=== PATIENT | female | born 1945 | race Two or more races ===

== ENCOUNTER 2018-01-27 10:21 | Emergency (ER) | payer OTHER ==
[~2018-01-27] VITALS: Ht 139.7 cm; Wt 63.5 kg
[~2018-01-27 10:21] MED LIST: ANTIVERT25 M1 PO; ASA81 MG PO; ATENOLOL50 MG PO; AVAPRO150 MG PO; CARDURA8 MG PO; FLONASE16 GM NS; IRON1TAB4 PO; LIPO-FLAVONOID1 EACH PO; METROPROLOL PO; NABUMETONE500 MG PO; NABUMETONE750 MG PO; PERCOCET 5/3251 TAB PO; SYNTHROID50 MCG PO; TENCON 50-3251 EACH PO; ULTRACET PO; VASOTEC2.5 MG
== END 2018-01-27 15:41 | disposition home or self-care (01) ==
LOC: ER 10:21
DX: K52.89 Other specified noninfective gastroenteritis and colitis (principal)

== ENCOUNTER → 2018-01-29 14:02 | Outpatient (CLI) | payer OTHER | END | disposition home or self-care (01) | LOC: LAB 14:02 | DX: N39.0 Urinary tract infection, site not specified (principal) ==

== ENCOUNTER 2018-02-01 08:06 | Outpatient (CLI) | payer OTHER | END 2018-02-01 08:44 | disposition home or self-care (01) | LOC: NUCLEAR 08:06 | DX: R14.3 Flatulence (principal); E73.8 Other lactose intolerance; K44.9 Diaphragmatic hernia without obstruction or gangrene; K30 Functional dyspepsia | CPT/HCPCS: 78264; A9541 ==

== ENCOUNTER 2018-05-14 05:34 | Emergency (ER) | payer OTHER ==
[~2018-05-14] VITALS: Ht 139.7 cm; Wt 60.8 kg
== END 2018-05-14 12:26 | disposition home or self-care (01) ==
LOC: ER 05:34 → CPU-OBS 05:38 → ER 05:38
DX: R07.89 Other chest pain (principal)

== ENCOUNTER 2018-06-19 08:47 | Outpatient (CLI) | payer OTHER | END 2018-06-19 08:54 | disposition home or self-care (01) | LOC: MAMO-SONO 08:47 | DX: Z12.31 Encounter for screening mammogram for malignant neoplasm of breast (principal); Z87.898 Personal history of other specified conditions; N60.11 Diffuse cystic mastopathy of right breast ==

== ENCOUNTER 2018-08-06 09:41 | Outpatient (CLI) | payer OTHER | END 2018-08-06 09:53 | disposition home or self-care (01) | LOC: SONOGRAMA 09:41 → MAMO-SONO 09:45 → SONOGRAMA 09:53 | DX: E04.1 Nontoxic single thyroid nodule (principal) ==

== ENCOUNTER 2018-11-12 14:16 | Outpatient (CLI) | payer OTHER | END 2018-11-12 14:20 | disposition home or self-care (01) | LOC: LAB 14:16 | DX: N39.0 Urinary tract infection, site not specified (principal); B96.89 Other specified bacterial agents as the cause of diseases classified elsewhere ==

== ENCOUNTER 2019-05-27 09:05 | Outpatient (CLI) | payer OTHER | END 2019-05-27 09:16 | disposition home or self-care (01) | LOC: LAB 09:05 | DX: N20.0 Calculus of kidney (principal) ==

== ENCOUNTER 2019-05-28 10:06 | Outpatient (CLI) | payer OTHER | END 2019-05-28 10:46 | disposition home or self-care (01) | LOC: TOM 10:06 | DX: E73.8 Other lactose intolerance (principal); R14.3 Flatulence; Z86.010 Personal history of colon polyps; R10.10 Upper abdominal pain, unspecified | CPT/HCPCS: 74177; Q9965 ==

== ENCOUNTER 2019-06-03 08:47 | Outpatient (CLI) | payer OTHER ==
[~2019-06-03] VITALS: Ht 139.7 cm; Wt 63.5 kg
== END 2019-06-03 11:24 | disposition home or self-care (01) ==
LOC: OFIC 805 08:47
DX: K21.0 Gastro-esophageal reflux disease with esophagitis (principal); E03.3 Postinfectious hypothyroidism; R07.0 Pain in throat

== ENCOUNTER 2019-06-17 10:14 | Outpatient (CLI) | payer OTHER | END 2019-06-17 14:27 | disposition home or self-care (01) | LOC: LAB 10:14 | DX: J11.1 Influenza due to unidentified influenza virus with other respiratory manifestations (principal); D64.89 Other specified anemias ==

== ENCOUNTER → 2019-10-23 09:21 | Outpatient (CLI) | payer OTHER | END | disposition home or self-care (01) | LOC: LAB 09:21 | PROVIDERS: ATTEND Internal Medicine Cardiovascular Disease | DX: I10 Essential (primary) hypertension (principal); E11.9 Type 2 diabetes mellitus without complications; E03.8 Other specified hypothyroidism ==

== ENCOUNTER 2020-01-05 09:19 | Outpatient (CLI) | payer OTHER | END 2020-01-05 09:22 | disposition home or self-care (01) | LOC: LAB 09:19 | DX: Z03.818 Encounter for observation for suspected exposure to other biological agents ruled out (principal) ==

== ENCOUNTER 2020-02-14 09:56 | Outpatient (CLI) | payer OTHER | END 2020-02-14 10:00 | disposition home or self-care (01) | LOC: LAB 09:56 | PROVIDERS: ATTEND Internal Medicine Cardiovascular Disease | DX: E03.8 Other specified hypothyroidism (principal); I10 Essential (primary) hypertension; E11.9 Type 2 diabetes mellitus without complications; E78.2 Mixed hyperlipidemia; Z12.11 Encounter for screening for malignant neoplasm of colon ==

== ENCOUNTER → 2020-02-16 07:43 | Outpatient (CLI) | payer OTHER | END | disposition home or self-care (01) | LOC: LAB 07:43 | PROVIDERS: ATTEND Internal Medicine Cardiovascular Disease | DX: I10 Essential (primary) hypertension (principal); E11.9 Type 2 diabetes mellitus without complications; E03.8 Other specified hypothyroidism; E78.2 Mixed hyperlipidemia; Z12.11 Encounter for screening for malignant neoplasm of colon ==

== ENCOUNTER → 2020-04-27 | Outpatient (CLI) | payer OTHER | END | disposition home or self-care (01) | LOC: OFIC 805 13:13 | PROVIDERS: ATTEND Otolaryngology | DX: E03.8 Other specified hypothyroidism (principal); K21.00 Gastro-esophageal reflux disease with esophagitis, without bleeding; R07.0 Pain in throat; R13.19 Other dysphagia ==

== ENCOUNTER 2020-05-10 13:39 | Outpatient (CLI) | payer OTHER | END 2020-05-10 13:48 | disposition home or self-care (01) | LOC: SONOGRAMA 13:39 | PROVIDERS: ATTEND Otolaryngology | DX: E04.2 Nontoxic multinodular goiter (principal); R22.2 Localized swelling, mass and lump, trunk ==

== ENCOUNTER 2020-05-31 12:50 | Outpatient (CLI) | payer OTHER | END 2020-05-31 12:54 | disposition home or self-care (01) | LOC: RAD 12:50 | PROVIDERS: ATTEND Internal Medicine Cardiovascular Disease | DX: M12.88 Other specific arthropathies, not elsewhere classified, other specified site (principal) ==

== ENCOUNTER 2020-06-10 13:04 | Outpatient (CLI) | payer OTHER | END 2020-06-10 13:58 | disposition home or self-care (01) | LOC: OFIC 805 13:04 | PROVIDERS: ATTEND Otolaryngology | DX: K21.00 Gastro-esophageal reflux disease with esophagitis, without bleeding (principal); R07.0 Pain in throat; R13.19 Other dysphagia ==

== ENCOUNTER 2020-06-30 13:18 | Outpatient (CLI) | payer OTHER | END 2020-06-30 13:20 | disposition home or self-care (01) | LOC: SONOGRAMA 13:18 | PROVIDERS: ATTEND Internal Medicine Cardiovascular Disease | DX: M25.511 Pain in right shoulder (principal) ==

== ENCOUNTER 2020-07-14 13:24 | Emergency (ER) | payer OTHER ==
[~2020-07-14] VITALS: Ht 139.7 cm; Wt 63.5 kg
[2020-07-14] MEDS ORDERED: ORPHENADRINE C100 MG PO (17:39)
[2020-07-14] MEDS ORDERED: KETO10TA2 PO (17:39)
== END 2020-07-14 17:44 | disposition home or self-care (01) ==
LOC: ER 13:24
DX: I87.2 Venous insufficiency (chronic) (peripheral) (principal); M79.605 Pain in left leg; M54.5 Low back pain

== ENCOUNTER 2020-11-30 07:49 | Outpatient (CLI) | payer OTHER ==
[~2020-11-30 07:49] MED LIST changes: +KETO10TA2 PO; +ORPHENADRINE C100 MG PO
== END 2020-11-30 07:50 | disposition home or self-care (01) ==
LOC: LAB 07:49
DX: I10 Essential (primary) hypertension (principal); D68.8 Other specified coagulation defects; T45.515S Adverse effect of anticoagulants, sequela; Z01.812 Encounter for preprocedural laboratory examination; H11.022 Central pterygium of left eye

== ENCOUNTER 2021-01-06 11:59 | Outpatient (CLI) | payer OTHER | END 2021-01-06 12:01 | disposition home or self-care (01) | LOC: RAD 11:59 | PROVIDERS: ATTEND Podiatrist | DX: M77.32 Calcaneal spur, left foot (principal); M77.31 Calcaneal spur, right foot; M20.12 Hallux valgus (acquired), left foot; M20.11 Hallux valgus (acquired), right foot ==

== ENCOUNTER 2021-02-17 07:33 | Outpatient (CLI) | payer OTHER | END 2021-02-17 07:35 | disposition home or self-care (01) | LOC: NUCLEAR 07:33 | PROVIDERS: ATTEND Internal Medicine Rheumatology | DX: M81.0 Age-related osteoporosis without current pathological fracture (principal) ==

== ENCOUNTER 2021-06-16 13:40 | Outpatient (CLI) | payer OTHER | END 2021-06-16 13:43 | disposition home or self-care (01) | LOC: MAMO-SONO 13:40 | PROVIDERS: ATTEND Obstetrics & Gynecology | DX: N60.11 Diffuse cystic mastopathy of right breast (principal); N60.12 Diffuse cystic mastopathy of left breast ==

== ENCOUNTER 2021-06-23 13:48 | Outpatient (CLI) | payer OTHER | END 2021-06-23 13:57 | disposition home or self-care (01) | LOC: RAD 13:48 | PROVIDERS: ATTEND Internal Medicine Rheumatology | DX: M51.9 Unspecified thoracic, thoracolumbar and lumbosacral intervertebral disc disorder (principal); M17.9 Osteoarthritis of knee, unspecified ==

== ENCOUNTER 2021-11-14 14:28 | Outpatient (CLI) | payer OTHER | END 2021-11-14 14:31 | disposition home or self-care (01) | LOC: RAD 14:28 | PROVIDERS: ATTEND Internal Medicine Cardiovascular Disease | DX: J44.9 Chronic obstructive pulmonary disease, unspecified (principal) ==

== ENCOUNTER 2022-07-18 14:12 | Outpatient (CLI) | payer OTHER | END 2022-07-18 14:13 | disposition home or self-care (01) | LOC: LAB 14:12 | PROVIDERS: ATTEND Internal Medicine Cardiovascular Disease | DX: J11.1 Influenza due to unidentified influenza virus with other respiratory manifestations (principal); A49.3 Mycoplasma infection, unspecified site; Z20.822 Contact with and (suspected) exposure to COVID-19; I10 Essential (primary) hypertension; E11.9 Type 2 diabetes mellitus without complications; E03.9 Hypothyroidism, unspecified; E78.2 Mixed hyperlipidemia; Z12.11 Encounter for screening for malignant neoplasm of colon ==

== ENCOUNTER 2022-09-19 09:02 | Emergency (ER) | payer OTHER ==
[~2022-09-19] VITALS: Ht 139.7 cm; Wt 63.5 kg
[2022-09-19] MEDS ORDERED: TOPROL XL25 M1 (09:17)
== END 2022-09-19 11:52 | disposition home or self-care (01) ==
LOC: ER 09:02
DX: R51.9 Headache, unspecified (principal); E03.9 Hypothyroidism, unspecified; J32.8 Other chronic sinusitis; J30.2 Other seasonal allergic rhinitis; I10 Essential (primary) hypertension; H60.91 Unspecified otitis externa, right ear

== ENCOUNTER → 2022-12-22 09:21 | Outpatient (CLI) | payer OTHER ==
[~2022-12-22 09:21] MED LIST changes: +TOPROL XL25 M1
== END | disposition home or self-care (01) ==
LOC: LAB 09:21
PROVIDERS: ATTEND Internal Medicine Cardiovascular Disease
DX: E78.2 Mixed hyperlipidemia (principal); I10 Essential (primary) hypertension; E11.9 Type 2 diabetes mellitus without complications

== ENCOUNTER 2023-02-13 10:26 | Emergency (ER) | payer OTHER ==
[~2023-02-13] VITALS: Ht 139.7 cm; Wt 63.5 kg
[2023-02-13] MEDS ORDERED: LEVO-T150 MCG (10:38)
[2023-02-13 12:47] LABS: HEMATOCRIT 36.4 % (36.0-45.00); HEMOGLOBIN 12.3 g/dL (12.0-15.00); MEAN CELL VOLUME 88.7 fL (80.00-100.00); MEAN CORPUSCULAR HGB CONC 33.8 g/dl (32.0-36.0); PLATELET COUNT 204 K/uL (150-450); RED CELL DISTRIBUTION WIDTH 13.3 % (11.5-14.5)
[2023-02-13 13:09] LABS: CALCIUM 8.8 mg/dL (8.5-10.1); CREATININE SERUM 0.63 mg/dL (0.55-1.02); GFR 92.12; POTASSIUM 3.79 mEq/L (3.5-5.1)
[2023-02-13] MEDS ORDERED: ALLEGRA ALLERGY60 MG PO (14:08)
[2023-02-13] MEDS ORDERED: FLONASE ALLERG9.9 ML NASAL (14:08)
== END 2023-02-13 14:19 | disposition home or self-care (01) ==
LOC: ER 10:27
PROVIDERS: General Practice
DX: J32.9 Chronic sinusitis, unspecified (principal); R68.89 Other general symptoms and signs; J31.0 Chronic rhinitis; Z20.822 Contact with and (suspected) exposure to COVID-19
CPT/HCPCS: 36415; 96372; 99284; J1885

== ENCOUNTER 2023-02-25 13:33 | Emergency (ER) | payer OTHER ==
[~2023-02-25] VITALS: Ht 157.5 cm; Wt 58.1 kg
[~2023-02-25 13:33] MED LIST changes: +ALLEGRA ALLERGY60 MG PO; +FLONASE ALLERG9.9 ML NASAL; +LEVO-T150 MCG
[2023-02-25] MEDS ORDERED: NORFLEX100MG PO (16:40)
[2023-02-25] MEDS ORDERED: KETO10TA2 PO (16:40)
== END 2023-02-25 17:55 ==
LOC: ER 13:33
DX: S09.8XXA Other specified injuries of head, initial encounter (principal); W01.0XXA Fall on same level from slipping, tripping and stumbling without subsequent striking against object, initial encounter; Y93.E5 Activity, floor mopping and cleaning; Y92.012 Bathroom of single-family (private) house as the place of occurrence of the external cause; I10 Essential (primary) hypertension; E03.9 Hypothyroidism, unspecified; M62.838 Other muscle spasm
CPT/HCPCS: 70450; 72125; 96372; 99284; J1885; J2360

== ENCOUNTER → 2023-04-25 08:03 | Outpatient (CLI) | payer OTHER ==
[~2023-04-25 08:03] MED LIST changes: +NORFLEX100MG PO
[2023-04-25 09:01] LABS: HEMATOCRIT 36.3 % (36.0-45.00); HEMOGLOBIN 12.5 g/dL (12.0-15.00); MEAN CELL VOLUME 89.1 fL (80.00-100.00); MEAN CORPUSCULAR HEMOGLOBIN 30.6 pg (27.00-32.0); MEAN CORPUSCULAR HGB CONC 34.4 g/dl (32.0-36.0); PH,URINE 5.5 (5.0-8.0); PLATELET COUNT 200 K/uL (150-450); RED BLOOD COUNT 4.08 M/uL (4.00-6.00); RED CELL DISTRIBUTION WIDTH 13.5 % (11.5-14.5); URINE APPEARANCE Clear; URINE BILIRRUBIN Negative (NEGATIVE); URINE BLOOD Negative; URINE COLOR Yellow; URINE GLUCOSE Negative (NEGATIVE); URINE LEUKOCYTE Trace; URINE NITRATE Negative; URINE PROTEIN Negative (NEGATIVE); URINE UROBILINOGEN 0.2 E.U./dl
[2023-04-25 09:05] LABS: URINE BACTERIA 56.6 uL (0.0-1933); URINE EPITHELIAL CELLS 8.1 uL (0.0-38.8); URINE WBC 45.4 uL (0.0-23.2)
[2023-04-25 09:17] LABS: URINE RBC 1.4 uL (0.0-20.8)
[2023-04-25 09:20] LABS: INR 0.97; PROTHROMBIN TIME 10.2 SECONDS (9.0-11.5)
[2023-04-25 09:25] LABS: CALCIUM 9.1 mg/dL (8.5-10.1); CREATININE SERUM 0.64 mg/dL (0.55-1.02); GFR 90.22; POTASSIUM 4.19 mEq/L (3.5-5.1)
[2023-04-25 10:57] LABS: ALBUMIN 3.6 gm/dL (3.4-5.0); BILIRUBIN TOTAL 0.34 mg/dL (0.3-1.2); GLOBULINA 3.3 G/DL (2.4-3.5); TOTAL PROTEIN 6.9 gm/dL (6.4-8.2)
== END | disposition home or self-care (01) ==
LOC: RAD 08:03 → LAB 08:03
PROVIDERS: ATTEND Orthopaedic Surgery Sports Medicine
DX: D68.9 Coagulation defect, unspecified (principal)

== ENCOUNTER 2023-04-30 05:56 | Inpatient (IN) | payer OTHER ==
[~2023-04-30] VITALS: Ht 139.7 cm; Wt 64.4 kg
[2023-05-07 11:24] LABS: HEMATOCRIT 32.9 % (36.0-45.00); HEMOGLOBIN 11.4 g/dL (12.0-15.00); RED BLOOD COUNT 3.7 M/uL (4.00-6.00)
[2023-05-07 15:58] LABS: HEMATOCRIT 33.7 % (36.0-45.00); HEMOGLOBIN 11.4 g/dL (12.0-15.00); MEAN CELL VOLUME 87.9 fL (80.00-100.00); MEAN CORPUSCULAR HEMOGLOBIN 29.8 pg (27.00-32.0); MEAN CORPUSCULAR HGB CONC 33.9 g/dl (32.0-36.0); PLATELET COUNT 164 K/uL (150-450); RED BLOOD COUNT 3.83 M/uL (4.00-6.00); RED CELL DISTRIBUTION WIDTH 13.5 % (11.5-14.5)
[2023-05-07 16:27] LABS: BILIRUBIN TOTAL 0.39 mg/dL (0.3-1.2); CALCIUM 7.9 mg/dL (8.5-10.1); CREATININE SERUM 0.54 mg/dL (0.55-1.02); GFR 109.76; GLOBULINA 3.1 G/DL (2.4-3.5); POTASSIUM 3.81 mEq/L (3.5-5.1); TOTAL PROTEIN 6.1 gm/dL (6.4-8.2)
[2023-05-08 06:02] LABS: HEMATOCRIT 30.2 % (36.0-45.00); HEMOGLOBIN 10.4 g/dL (12.0-15.00); MEAN CELL VOLUME 88.5 fL (80.00-100.00); MEAN CORPUSCULAR HEMOGLOBIN 30.5 pg (27.00-32.0); MEAN CORPUSCULAR HGB CONC 34.5 g/dl (32.0-36.0); PLATELET COUNT 170 K/uL (150-450); RED BLOOD COUNT 3.41 M/uL (4.00-6.00); RED CELL DISTRIBUTION WIDTH 13.4 % (11.5-14.5)
[2023-05-08 11:04] LABS: CALCIUM 8.6 mg/dL (8.5-10.1); CREATININE SERUM 0.72 mg/dL (0.55-1.02); GFR 78.75; MAGNESIUM 2.1 mg/dL (1.8-2.4); POTASSIUM 4.04 mEq/L (3.5-5.1)
[2023-05-09 06:30] LABS: HEMATOCRIT 24.7 % (36.0-45.00); MEAN CELL VOLUME 87.3 fL (80.00-100.00); MEAN CORPUSCULAR HGB CONC 35.8 g/dl (32.0-36.0); PLATELET COUNT 142 K/uL (150-450); RED BLOOD COUNT 2.83 M/uL (4.00-6.00); RED CELL DISTRIBUTION WIDTH 13.4 % (11.5-14.5)
[2023-05-09 06:31] LABS: HEMOGLOBIN 8.8 g/dL (12.0-15.00)
[2023-05-09] MEDS ORDERED: BACTRIM DS TAB1 EACH PO (06:31)
[2023-05-09] MEDS ORDERED: XARELTO10 MG PO (06:31)
[2023-05-09] MEDS ORDERED: OXYC1TAB9 PO (06:31)
[2023-05-09] MEDS ORDERED: INTEGRA PLUS C1 EACH PO (06:31)
== END 2023-05-09 16:09 | DRG 470 ==
LOC: O/R 05-07 05:15 → SURG 05-07 05:15 → CIR.AMB 05-07 05:55 → EDSTATUS 05-07 07:08 → SURH 05-07 07:14 → SURG 05-07 11:42
PROVIDERS: Internal Medicine; ADMIT Orthopaedic Surgery Sports Medicine; ATTEND Orthopaedic Surgery Sports Medicine
PROC: 0SRC0J9 Replacement of Right Knee Joint with Synthetic Substitute, Cemented, Open Approach (ICD-10-PCS; principal; 2023-05-07 10:30)
DX: M17.11 Unilateral primary osteoarthritis, right knee (principal); I10 Essential (primary) hypertension; Z20.822 Contact with and (suspected) exposure to COVID-19

== ENCOUNTER → 2023-11-05 | Outpatient (CLI) | payer OTHER ==
[~2023-11-05] MED LIST changes: +BACTRIM DS TAB1 EACH PO; +INTEGRA PLUS C1 EACH PO; +OXYC1TAB9 PO; +XARELTO10 MG PO
[2023-11-05 12:47] LABS: PH,URINE 7.5 (5.0-8.0); URINE APPEARANCE Cloudy; URINE BILIRRUBIN Negative (NEGATIVE); URINE BLOOD Negative; URINE COLOR Yellow; URINE GLUCOSE Negative (NEGATIVE); URINE LEUKOCYTE Small; URINE NITRATE Negative; URINE PROTEIN Negative (NEGATIVE); URINE UROBILINOGEN 0.2 E.U./dl
[2023-11-05 12:53] LABS: URINE RBC 5.8 uL (0.0-20.8); URINE WBC 118.7 uL (0.0-23.2)
== END | disposition home or self-care (01) ==
LOC: LAB 11:52
PROVIDERS: ATTEND Internal Medicine Cardiovascular Disease
DX: N39.0 Urinary tract infection, site not specified (principal)

== ENCOUNTER 2024-01-08 08:26 | Emergency (ER) | payer OTHER ==
[~2024-01-08] VITALS: Ht 162.6 cm; Wt 63.5 kg
[2024-01-08 10:07] LABS: HEMOGLOBIN 12.7 g/dL (12.0-15.00); MEAN CELL VOLUME 88.9 fL (80.00-100.00); MEAN CORPUSCULAR HEMOGLOBIN 30.5 pg (27.00-32.0); MEAN CORPUSCULAR HGB CONC 34.3 g/dl (32.0-36.0); PLATELET COUNT 205 K/uL (150-450); RED BLOOD COUNT 4.16 M/uL (4.00-6.00); RED CELL DISTRIBUTION WIDTH 13.5 % (11.5-14.5)
[2024-01-08 10:08] LABS: URINE APPEARANCE Clear; URINE BILIRRUBIN Negative (NEGATIVE); URINE BLOOD Negative; URINE COLOR Yellow; URINE GLUCOSE Negative (NEGATIVE); URINE KETONE Negative (NEGATIVE); URINE LEUKOCYTE Small; URINE NITRATE Negative; URINE PROTEIN Negative (NEGATIVE); URINE UROBILINOGEN 0.2 E.U./dl
[2024-01-08 10:10] LABS: URINE BACTERIA 1112.4 uL (0.0-1933); URINE RBC 3.8 uL (0.0-20.8); URINE WBC 72.8 uL (0.0-23.2)
[2024-01-08 10:29] LABS: CALCIUM 9.1 mg/dL (8.5-10.1); CREATININE SERUM 0.6 mg/dL (0.55-1.02); GFR 97.2; POTASSIUM 4.67 mEq/L (3.5-5.1)
== END 2024-01-08 10:44 | disposition home or self-care (01) ==
LOC: ER 08:27
PROVIDERS: General Practice
DX: N39.0 Urinary tract infection, site not specified (principal); R10.2 Pelvic and perineal pain; I10 Essential (primary) hypertension

== ENCOUNTER 2024-01-22 10:48 | Outpatient (CLI) | payer OTHER ==
[2024-01-22 11:31] LABS: HEMATOCRIT 35.7 % (36.0-45.00); MEAN CELL VOLUME 89.7 fL (80.00-100.00); MEAN CORPUSCULAR HEMOGLOBIN 30.3 pg (27.00-32.0); MEAN CORPUSCULAR HGB CONC 33.7 g/dl (32.0-36.0); PLATELET COUNT 179 K/uL (150-450); RED BLOOD COUNT 3.98 M/uL (4.00-6.00); RED CELL DISTRIBUTION WIDTH 14.2 % (11.5-14.5)
[2024-01-22 12:26] LABS: MYCOPLASMA PNEUMONIAE IGM NON REACTIVE (NO REACTIVE)
== END 2024-01-22 10:54 | disposition home or self-care (01) ==
LOC: LAB 10:48
PROVIDERS: ATTEND Internal Medicine Cardiovascular Disease
DX: J11.1 Influenza due to unidentified influenza virus with other respiratory manifestations (principal); A49.3 Mycoplasma infection, unspecified site; Z20.822 Contact with and (suspected) exposure to COVID-19

== ENCOUNTER 2024-03-10 10:36 | Emergency (ER) | payer OTHER ==
[~2024-03-10] VITALS: Ht 139.7 cm; Wt 63.5 kg
[2024-03-10] MEDS ORDERED: ORPHENADRINE CITRATE 30 MG/ML AMPUL IM ONE (12:00)
[2024-03-10] MEDS ORDERED: KETOROLAC TROMETHAMINE 60 MG VIAL IM ONE (12:00)
[2024-03-10] MEDS ORDERED: ENALAPRIL MALEATE 2.5 MG TABLET PO ONE (12:00)
[2024-03-10] MEDS ORDERED: MONTELUKAST SODI4 M1 PO (12:04)
[2024-03-10] MEDS ORDERED: NORFLEX100MG PO (12:04)
== END 2024-03-10 12:49 | disposition home or self-care (01) ==
LOC: ER 10:36
DX: M62.838 Other muscle spasm (principal); I10 Essential (primary) hypertension
CPT/HCPCS: 96372; 99282; J1885; J2360

== ENCOUNTER 2024-05-09 10:37 | Outpatient (CLI) | payer OTHER ==
[~2024-05-09 10:37] MED LIST changes: +MONTELUKAST SODI4 M1 PO
== END 2024-05-09 11:00 | disposition home or self-care (01) ==
LOC: RAD 10:37
PROVIDERS: ATTEND Orthopaedic Surgery Sports Medicine
DX: M17.11 Unilateral primary osteoarthritis, right knee (principal)

== ENCOUNTER 2024-06-05 09:37 | Outpatient (CLI) | payer OTHER | END 2024-06-05 09:41 | disposition home or self-care (01) | LOC: SONOGRAMA 09:37 | PROVIDERS: ATTEND Internal Medicine Cardiovascular Disease | DX: R10.9 Unspecified abdominal pain (principal) ==

== ENCOUNTER → 2024-07-08 09:04 | Outpatient (CLI) | payer OTHER | END | disposition home or self-care (01) | LOC: NUCLEAR 09:04 | PROVIDERS: ATTEND Internal Medicine Cardiovascular Disease | DX: G30.9 Alzheimer's disease, unspecified (principal); R41.2 Retrograde amnesia | CPT/HCPCS: 78803; A9557 ==

== ENCOUNTER 2024-08-09 17:54 | Emergency (ER) | payer OTHER ==
[~2024-08-09] VITALS: Ht 139.7 cm; Wt 63.5 kg
[2024-08-09] MEDS ORDERED: TOPROL XL50 M1 PO (18:07)
== END 2024-08-09 21:05 | disposition home or self-care (01) ==
LOC: ER 17:54
DX: S09.8XXA Other specified injuries of head, initial encounter (principal); W18.39XA Other fall on same level, initial encounter; Y93.89 Activity, other specified; Y92.018 Other place in single-family (private) house as the place of occurrence of the external cause; I10 Essential (primary) hypertension

== ENCOUNTER → 2024-09-22 | Emergency (ER) | payer OTHER ==
[~2024-09-22] VITALS: Ht 139.7 cm; Wt 68.9 kg
[~2024-09-22] MED LIST changes: +CEFTRIAXONE SODIUM 2,000 MG VIAL ONE; +TOPROL XL50 M1 PO
[2024-09-22 18:58] LABS: BASO % 0.6 % (0.1-1.2); EOS # 0.18 (0.04-0.54); EOS % 3.3 % (0.7-7.0); HEMATOCRIT 37.2 % (34.1-44.9); HEMOGLOBIN 12.5 g/dL (11.2-15.7); LYMPH % 29.4 % (19.3-53.1); MEAN CORPUSCULAR HEMOGLOBIN 29.1 pg (25.6-32.2); MONO # 0.43 (0.24-0.82); MONO % 7.9 % (4.7-12.5); NEUT # 3.18 (1.56-6.13); NEUT % 58.4 % (34.0-71.1); PLATELET COUNT 194 K/uL (163-369)
[2024-09-22 19:15] LABS: ALBUMIN 3.7 gm/dL (3.4-5.0); BILIRUBIN TOTAL 0.33 mg/dL (0.3-1.2); CALCIUM 9.4 mg/dL (8.5-10.1); CREATININE SERUM 0.66 mg/dL (0.55-1.02); GFR 86.84; GLOBULINA 4.2 G/DL (2.4-3.5); POTASSIUM 4.01 mEq/L (3.5-5.1); TOTAL PROTEIN 7.9 gm/dL (6.4-8.2)
== END | disposition left against medical advice (07) ==
LOC: ER 15:29 → EDBD 16:02
PROVIDERS: Preventive Medicine Public Health & General Preventive Medicine
DX: R60.0 Localized edema (principal); I10 Essential (primary) hypertension; E03.9 Hypothyroidism, unspecified

== ENCOUNTER 2024-09-23 11:13 | Emergency (ER) | payer OTHER ==
[~2024-09-23] VITALS: Ht 139.7 cm; Wt 68.0 kg
[~2024-09-23 11:13] MED LIST changes: -CEFTRIAXONE SODIUM 2,000 MG VIAL ONE
[2024-09-23] MEDS ORDERED: 0.9 % SODIUM CHLORIDE 1,000 ML IV ONE (13:45)
[2024-09-23 14:07] LABS: BASO % 0.6 % (0.1-1.2); EOS # 0.12 (0.04-0.54); EOS % 2.3 % (0.7-7.0); HEMATOCRIT 36.6 % (34.1-44.9); HEMOGLOBIN 12.6 g/dL (11.2-15.7); LYMPH # 1.53 (1.18-3.74); LYMPH % 28.8 % (19.3-53.1); MEAN CORPUSCULAR HEMOGLOBIN 30.1 pg (25.6-32.2); MONO % 7.5 % (4.7-12.5); NEUT # 3.21 (1.56-6.13); NEUT % 60.4 % (34.0-71.1); PLATELET COUNT 196 K/uL (163-369); RED BLOOD COUNT 4.19 M/uL (3.93-5.22); RED CELL DISTRIBUTION WIDTH 12.9 % (11.6-14.4)
[2024-09-23 14:33] LABS: ALBUMIN 3.8 gm/dL (3.4-5.0); BILIRUBIN TOTAL 0.39 mg/dL (0.3-1.2); CALCIUM 9.4 mg/dL (8.5-10.1); CREATININE SERUM 0.65 mg/dL (0.55-1.02); GFR 88.38; GLOBULINA 4.3 G/DL (2.4-3.5); POTASSIUM 3.98 mEq/L (3.5-5.1); TOTAL PROTEIN 8.1 gm/dL (6.4-8.2)
[2024-09-23 14:39] LABS: INR 0.96; PARTIAL THROMBOPLASTIN TIME 25.6 SECONDS (22.0-34.0); PROTHROMBIN TIME 10.5 SECONDS (9.0-11.5)
[2024-09-23 14:52] LABS: URINE APPEARANCE Clear; URINE BILIRRUBIN Negative (NEGATIVE); URINE BLOOD Negative; URINE COLOR Yellow; URINE GLUCOSE Negative (NEGATIVE); URINE KETONE Negative (NEGATIVE); URINE LEUKOCYTE Negative; URINE NITRATE Positive; URINE PROTEIN Negative (NEGATIVE); URINE UROBILINOGEN 0.2 E.U./dl
[2024-09-23 14:56] LABS: URINE EPITHELIAL CELLS 2.8 uL (0.0-38.8); URINE RBC 2.5 uL (0.0-20.8); URINE WBC 13.4 uL (0.0-23.2)
[2024-09-23 15:18] LABS: URINE BACTERIA > 9821.5 uL (0.0-1933)
[2024-09-23] MEDS ORDERED: CEFTRIAXONE SODIUM 2,000 MG VIAL IV ONE (18:30)
[2024-09-23] MEDS ORDERED: BACTRIM DS TAB1 EACH PO (20:11)
== END 2024-09-23 20:36 | disposition home or self-care (01) ==
LOC: ER 11:13 → EDBD 11:48 → ER 11:48
PROVIDERS: General Practice
DX: N39.0 Urinary tract infection, site not specified (principal); R14.0 Abdominal distension (gaseous); R60.0 Localized edema; R10.9 Unspecified abdominal pain; I10 Essential (primary) hypertension
CPT/HCPCS: 36415; 71046; 74177; 96365; 96366; 99284; J0696; J7030; Q9965

== ENCOUNTER 2024-09-24 06:11 | Outpatient (CLI) | payer OTHER ==
[2024-09-24 14:13] LABS: PH,URINE 6.5 (5.0-8.0); URINE APPEARANCE Clear; URINE BILIRRUBIN Negative (NEGATIVE); URINE BLOOD Negative; URINE COLOR Yellow; URINE GLUCOSE Negative (NEGATIVE); URINE KETONE Negative (NEGATIVE); URINE LEUKOCYTE Trace; URINE NITRATE Negative; URINE PROTEIN Negative (NEGATIVE); URINE UROBILINOGEN 0.2 E.U./dl
[2024-09-24 14:17] LABS: URINE BACTERIA 4.8 uL (0.0-1933); URINE WBC 58.1 uL (0.0-23.2)
== END 2024-09-24 06:24 | disposition home or self-care (01) ==
LOC: EDBD 06:11 → LAB 06:11
PROVIDERS: ATTEND Preventive Medicine Public Health & General Preventive Medicine
DX: N39.0 Urinary tract infection, site not specified (principal)

== ENCOUNTER 2024-11-19 13:11 | Outpatient (CLI) | payer OTHER ==
[2024-11-19 13:29] LABS: URINE APPEARANCE Turbid; URINE BILIRRUBIN Negative (NEGATIVE); URINE BLOOD Negative; URINE COLOR Yellow; URINE GLUCOSE Negative (NEGATIVE); URINE KETONE Negative (NEGATIVE); URINE LEUKOCYTE Small; URINE NITRATE Negative; URINE PROTEIN Negative (NEGATIVE); URINE UROBILINOGEN 0.2 E.U./dl
[2024-11-19 13:30] LABS: URINE BACTERIA 1025.9 uL (0.0-1933); URINE EPITHELIAL CELLS 16.9 uL (0.0-38.8); URINE RBC 13.1 uL (0.0-20.8); URINE WBC 162.8 uL (0.0-23.2)
[2024-11-19 13:34] LABS: URINE CAST 0.00 uL (0.0-1.40)
== END 2024-11-19 13:17 | disposition home or self-care (01) ==
LOC: LAB 13:11
PROVIDERS: ATTEND Internal Medicine Cardiovascular Disease
DX: N39.0 Urinary tract infection, site not specified (principal)

== ENCOUNTER 2025-03-30 12:22 | Outpatient (CLI) | payer OTHER ==
[2025-03-30 12:51] LABS: URINE APPEARANCE Clear; URINE BILIRRUBIN Negative (NEGATIVE); URINE BLOOD Negative; URINE COLOR Yellow; URINE GLUCOSE Negative (NEGATIVE); URINE KETONE Negative (NEGATIVE); URINE LEUKOCYTE Moderate; URINE NITRATE Negative; URINE PROTEIN Negative (NEGATIVE); URINE UROBILINOGEN 0.2 E.U./dl
[2025-03-30 12:52] LABS: URINE BACTERIA 19.4 uL (0.0-1933); URINE EPITHELIAL CELLS 1.9 uL (0.0-38.8); URINE RBC 4.3 uL (0.0-20.8); URINE WBC 343.8 uL (0.0-23.2)
[2025-03-30 13:31] LABS: URINE CAST 0.28 uL (0.0-1.40)
== END 2025-03-30 13:53 | disposition home or self-care (01) ==
LOC: LAB 12:22
PROVIDERS: ATTEND Internal Medicine Cardiovascular Disease
DX: N39.0 Urinary tract infection, site not specified (principal)